=== PATIENT | male | born 1945 ===

== ENCOUNTER 2019-08-09 07:00 | Day surgery (SDC) | payer OTHER | END 2019-08-09 12:55 | disposition home or self-care (01) | LOC: AMB-ENDOS 07:00 | DX: K63.5 Polyp of colon (principal); K57.30 Diverticulosis of large intestine without perforation or abscess without bleeding; K64.1 Second degree hemorrhoids; K64.8 Other hemorrhoids ==

== ENCOUNTER 2024-07-04 14:38 | Inpatient (IN) | payer OTHER ==
[~2024-07-04] VITALS: Ht 162.6 cm; Wt 77.1 kg
[~2024-07-04 14:38] MED LIST: ASPIR 8181 MG PO; BISOPROLOL FUMA10 MG PO; ROSUVASTATIN CA20 MG PO
--- NOTE | 2024-07-04 14:48 | NUR ---
SE RECIBE PTE ALERTA Y ORIENTADO X3 EN AMBULANCIA. PTE VIENE DE TRANSFER DE MENONITA DE CAGUAS POR ABSCESO RECTAL. PTE DE DR GARCIA Y DR LEACH. SE IBSERVA HL CON ANGIO #20 EN [place]RAZO ZENON. SE MIDE SV Y SE UBICA
[2024-07-04] MEDS ORDERED: 0.9 % SODIUM CHLORIDE 500 ML IV ONE (16:00)
[2024-07-04 16:31] LABS: HEMATOCRIT 35.9 % (39.0-48.0); HEMOGLOBIN 12.1 g/dL (13-16.00); MEAN CELL VOLUME 78.9 fL (80.0-100.00); MEAN CORPUSCULAR HEMOGLOBIN 26.6 pg (27.00-32.0); MEAN CORPUSCULAR HGB CONC 33.7 g/dl (32.0-36.0); PLATELET COUNT 267 K/uL (150-450); RED BLOOD COUNT 4.55 M/uL (4.00-6.00); RED CELL DISTRIBUTION WIDTH 14.9 % (11.5-14.5)
--- NOTE | 2024-07-04 16:33 | NUR ---
SE ORIENTA FAMILIAR SOBRE TX MEDICO EL CUAL REFIERE ENTENDER.SE LE EXTRAEN MUESTRAS BAJO MEDIDAS ASEPTICAS,PTE CANALIZADO DESDE EL [facility].PATENTE Y SALENA DE EDEMA CON FLUIDOS DE MANTENIMIENTO.
[2024-07-04 16:43] LABS: ERYTHROCYTE SEDIMENTATION RATE > 130 mm/hr
[2024-07-04 16:56] LABS: URINE APPEARANCE Clear; URINE BACTERIA 12.5 uL (0.0-1933); URINE BILIRRUBIN Negative (NEGATIVE); URINE BLOOD Moderate; URINE COLOR Yellow; URINE EPITHELIAL CELLS 6.3 uL (0.0-38.8); URINE KETONE Trace (NEGATIVE); URINE LEUKOCYTE Negative; URINE NITRATE Negative; URINE PROTEIN 30 (NEGATIVE); URINE RBC 214.6 uL (0.0-20.8); URINE WBC 13.7 uL (0.0-23.2)
[2024-07-04 16:58] LABS: INR 1.11; PARTIAL THROMBOPLASTIN TIME 28.5 SECONDS (22.0-34.0)
[2024-07-04 17:05] LABS: URINE GLUCOSE 100 MG/DL (NEGATIVE)
[2024-07-04 17:05] LABS: ALBUMIN 2.7 gm/dL (3.4-5.0); BILIRUBIN TOTAL 0.5 mg/dL (0.3-1.2); BILIRUBIN,CONJUGATED 0.19 mg/dL (0.0-0.2); BILIRUBIN,UNCONJUGATED 0.31 mg/dL (0.0-0.6); CREATININE SERUM 0.71 mg/dL (0.70-1.30); GFR 107.02; GLOBULINA 4.9 G/DL (2.4-3.5); POTASSIUM 3.31 mEq/L (3.5-5.1); TOTAL PROTEIN 7.6 gm/dL (6.4-8.2)
[2024-07-04] MEDS ORDERED: 0.9 % SODIUM CHLORIDE 1,000 ML IV SCH (17:45)
[2024-07-04] MEDS ORDERED: ORPHENADRINE CITRATE 30 MG/ML AMPUL IM ONE (18:00)
[2024-07-04] MEDS ORDERED: POTASSIUM BICARBONATE/CIT AC 25 MEQ TABLET.EFF PO ONE (18:00)
[2024-07-04] MEDS ORDERED: PIPERACILLIN/TAZOBACTAM SODIUM 3.375 GM in DEXTROSE 5 % IN WATER 100 ML IV SCH (18:00)
[2024-07-04] MEDS ORDERED: ACETAMINOPHEN 500 MG GEL..CAP PO PRN (18:00)
[2024-07-04] MEDS ORDERED: KETOROLAC TROMETHAMINE 15 MG VIAL IU ONE (18:00)
[2024-07-04] MEDS ORDERED: MEPERIDINE HCL/PF 25 MG/ML VIAL IM PRN (18:00)
[2024-07-04] MEDS ORDERED: ORPHENADRINE CITRATE 30 MG/ML AMPUL IM SCH (18:33)
[2024-07-04] MEDS ORDERED: POTASSIUM CHLORIDE 20MEQ/100ML H2O PB IV ONE (18:45)
[2024-07-04 18:57] VITALS: BP 178/74; BP 178/84; O2SAT 95
[2024-07-05 04:00] VITALS: BP 176/72; O2SAT 94
[2024-07-05 08:02] VITALS: BP 175/61; O2SAT 98
[2024-07-05] MEDS ORDERED: ENALAPRILAT DIHYDRATE 1.25 MG/ML VIAL IV PRN (08:15)
[2024-07-05] MEDS ORDERED: FAMOTIDINE/PF 20 MG in 0.9 % SODIUM CHLORIDE 8 ML IV PUSH SCH (09:00)
[2024-07-05] MEDS ORDERED: NIFEDIPINE 30 MG TAB.SA.OSM PO SCH (09:00)
[2024-07-05] MEDS ORDERED: LOSARTAN POTASSIUM 25 MG TABLET PO SCH (09:00)
[2024-07-05] MEDS ORDERED: TAMSULOSIN HCL 0.4 MG CAP PO SCH ×2 (09:00→21:00)
[2024-07-05] MEDS ORDERED: ATORVASTATIN CALCIUM 40 MG TABLET PO SCH (09:00)
[2024-07-05 11:27] LABS: HEMATOCRIT 32.1 % (39.0-48.0); HEMOGLOBIN 10.9 g/dL (13-16.00); MEAN CELL VOLUME 79.3 fL (80.0-100.00); MEAN CORPUSCULAR HEMOGLOBIN 26.8 pg (27.00-32.0); MEAN CORPUSCULAR HGB CONC 33.8 g/dl (32.0-36.0); PLATELET COUNT 249 K/uL (150-450); RED BLOOD COUNT 4.05 M/uL (4.00-6.00); RED CELL DISTRIBUTION WIDTH 14.8 % (11.5-14.5)
[2024-07-05 12:14] LABS: ALBUMIN 2.7 gm/dL (3.4-5.0); BILIRUBIN TOTAL 0.62 mg/dL (0.3-1.2); CALCIUM 8.7 mg/dL (8.5-10.1); CREATININE SERUM 0.66 mg/dL (0.70-1.30); GFR 116.43; GLOBULINA 3.8 G/DL (2.4-3.5); PHOSPHOROUS 2.6 mg/dL (2.5-4.9); POTASSIUM 3.6 mEq/L (3.5-5.1); TOTAL PROTEIN 6.5 gm/dL (6.4-8.2)
[2024-07-05 12:32] LABS: MYCOPLASMA PNEUMONIAE IGM NON REACTIVE (NO REACTIVE)
[2024-07-05 15:17] LABS: ASO NEGATIVE DILS (NEGATIVE)
[2024-07-05 17:38] VITALS: BP 125/76; O2SAT 96
[2024-07-05] MEDS ORDERED: fentaNYL CITRATE 50 MCG/ML AMPUL IV PUSH ONE (17:45)
[2024-07-05] MEDS ORDERED: MIDAZOLAM HCL 2 MG/2 ML VIAL IV PUSH ONE (17:45)
[2024-07-06 00:50] VITALS: BP 136/64; O2SAT 90; O2SAT 94
[2024-07-06 06:19] LABS: HEMATOCRIT 32.4 % (39.0-48.0); HEMOGLOBIN 11.2 g/dL (13-16.00); MEAN CELL VOLUME 78.8 fL (80.0-100.00); MEAN CORPUSCULAR HEMOGLOBIN 27.3 pg (27.00-32.0); MEAN CORPUSCULAR HGB CONC 34.6 g/dl (32.0-36.0); PLATELET COUNT 283 K/uL (150-450); RED BLOOD COUNT 4.11 M/uL (4.00-6.00); RED CELL DISTRIBUTION WIDTH 14.5 % (11.5-14.5)
[2024-07-06 07:00] LABS: ALBUMIN 2.7 gm/dL (3.4-5.0); BILIRUBIN TOTAL 0.58 mg/dL (0.3-1.2); CALCIUM 8.4 mg/dL (8.5-10.1); CREATININE SERUM 0.61 mg/dL (0.70-1.30); GFR 127.51; PHOSPHOROUS 3.2 mg/dL (2.5-4.9); TOTAL PROTEIN 6.7 gm/dL (6.4-8.2)
[2024-07-06 07:04] LABS: C-REACTIVE PROTEIN 12.4 MG/DL (0.00-0.29)
[2024-07-06 07:05] LABS: POTASSIUM 4.09 mEq/L (3.5-5.1)
[2024-07-06 08:57] VITALS: BP 166/70; O2SAT 96
[2024-07-06 09:12] LABS: PLATELET ESTIMATE NORMAL (NORMAL)
[2024-07-06 10:15] LABS: CORTISOL < 0.11 ug/dl
[2024-07-06] MEDS ORDERED: TUBERCULIN,PURIF.PROT.DERIV. 10 SKIN.TEST SKIN.TEST ID NR (12:00)
[2024-07-06 14:55] LABS: T4 TOTAL 9.23 UG/DL (4.5-12.1); TSH 2.28 uIU/mL (0.358-3.74)
[2024-07-06 16:00] VITALS: BP 148/72; O2SAT 94
[2024-07-07 00:28] VITALS: BP 161/75; O2SAT 93
[2024-07-07 08:47] VITALS: BP 136/63; O2SAT 97
[2024-07-07] MEDS ORDERED: COSYNTROPIN 0.25 MG VIAL IV ONE (10:00)
[2024-07-07 18:02] VITALS: BP 166/77; O2SAT 98
[2024-07-08 05:09] VITALS: BP 168/78; O2SAT 99
[2024-07-08 06:25] LABS: HEMOGLOBIN 10.5 g/dL (13-16.00); MEAN CELL VOLUME 79.6 fL (80.0-100.00); MEAN CORPUSCULAR HGB CONC 33.9 g/dl (32.0-36.0); PLATELET COUNT 332 K/uL (150-450); RED CELL DISTRIBUTION WIDTH 14.6 % (11.5-14.5)
[2024-07-08 08:20] VITALS: BP 173/79; O2SAT 96
[2024-07-08 08:20] LABS: CALCIUM 8.5 mg/dL (8.5-10.1); CREATININE SERUM 0.65 mg/dL (0.70-1.30); GFR 118.5; MAGNESIUM 1.9 mg/dL (1.8-2.4); PHOSPHOROUS 3.2 mg/dL (2.5-4.9); POTASSIUM 3.44 mEq/L (3.5-5.1)
[2024-07-08 08:21] LABS: C-REACTIVE PROTEIN 5.57 MG/DL (0.00-0.29)
[2024-07-08] MEDS ORDERED: ENOXAPARIN SODIUM 40 MG/0.4 ML SYRINGE SUBCUTANEO SCH (09:00)
[2024-07-08 09:30] LABS: ERYTHROCYTE SEDIMENTATION RATE 95 mm/hr
[2024-07-08 16:23] VITALS: BP 153/73
[2024-07-09 01:51] VITALS: BP 178/72; O2SAT 96
[2024-07-09 07:52] VITALS: BP 188/79; O2SAT 96
[2024-07-09] MEDS ORDERED: SODIUM CHLORIDE 0.45 % 1,000 ML IV SCH (12:15)
[2024-07-09 17:07] VITALS: BP 175/73
[2024-07-10] VITALS: BP 145/71; O2SAT 93
[2024-07-10 06:55] LABS: HEMATOCRIT 35.2 % (39.0-48.0); HEMOGLOBIN 11.7 g/dL (13-16.00); MEAN CELL VOLUME 80.2 fL (80.0-100.00); MEAN CORPUSCULAR HEMOGLOBIN 26.6 pg (27.00-32.0); MEAN CORPUSCULAR HGB CONC 33.2 g/dl (32.0-36.0); PLATELET COUNT 394 K/uL (150-450); RED BLOOD COUNT 4.39 M/uL (4.00-6.00); RED CELL DISTRIBUTION WIDTH 14.8 % (11.5-14.5)
[2024-07-10 07:26] LABS: ALBUMIN 2.9 gm/dL (3.4-5.0); BILIRUBIN TOTAL 0.44 mg/dL (0.3-1.2); CALCIUM 8.9 mg/dL (8.5-10.1); CREATININE SERUM 0.75 mg/dL (0.70-1.30); GFR 100.46; GLOBULINA 4.5 G/DL (2.4-3.5); POTASSIUM 3.92 mEq/L (3.5-5.1); TOTAL PROTEIN 7.4 gm/dL (6.4-8.2)
[2024-07-10 07:34] LABS: C-REACTIVE PROTEIN 3.07 MG/DL (0.00-0.29)
[2024-07-10 09:56] VITALS: BP 151/66; O2SAT 98
== END 2024-07-10 15:00 | disposition home or self-care (01) | DRG 375 ==
LOC: ER 14:38 → MEDI 18:43 → SEC-K 18:43 → MEDI 19:46
PROVIDERS: Internal Medicine Geriatric Medicine; Internal Medicine Infectious Disease; Nurse Practitioner Family; Specialist; ADMIT Colon & Rectal Surgery; ATTEND Colon & Rectal Surgery
PROC: 0D9P3ZZ Drainage of Rectum, Percutaneous Approach (ICD-10-PCS; principal; 2024-07-05)
PROC: 4A12X4Z Monitoring of Cardiac Electrical Activity, External Approach (ICD-10-PCS; 2024-07-06)
PROC: B345ZZZ Ultrasonography of Bilateral Common Carotid Arteries (ICD-10-PCS; 2024-07-07)
PROC: B348ZZZ Ultrasonography of Bilateral Internal Carotid Arteries (ICD-10-PCS; 2024-07-07)
DX: C20 Malignant neoplasm of rectum (principal); E27.40 Unspecified adrenocortical insufficiency; K61.1 Rectal abscess; E87.1 Hypo-osmolality and hyponatremia; I11.9 Hypertensive heart disease without heart failure; I35.1 Nonrheumatic aortic (valve) insufficiency; E87.6 Hypokalemia; E78.00 Pure hypercholesterolemia, unspecified; D64.9 Anemia, unspecified; B95.2 Enterococcus as the cause of diseases classified elsewhere; B96.89 Other specified bacterial agents as the cause of diseases classified elsewhere

== ENCOUNTER 2024-07-10 12:00 | Inpatient (IN) | payer OTHER ==
[~2024-07-10] VITALS: Ht 165.1 cm; Wt 69.4 kg
[2024-07-13] MEDS ORDERED: LOSARTAN POTASS25 MG (15:09)
[2024-07-13] MEDS ORDERED: JARDIANCE10 MG (15:09)
[2024-07-13] MEDS ORDERED: VITAMINA D3 (15:10)
[2024-07-13] MEDS ORDERED: NIFEDIPINE ER30 MG (15:10)
[2024-07-13 15:11] VITALS: BP 178/78
[2024-07-19] MEDS ORDERED: POVIDONE-IODINE 118 ML BOTT TOP ONE (14:45)
[2024-07-19] MEDS ORDERED: BUPIVACAINE HCL 30 ML VIAL IJ ONE (14:45)
[2024-07-19] MEDS ORDERED: DIBUCAINE 30 GM TUBE RECTAL ONE (14:45)
[2024-07-19] MEDS ORDERED: CEFTRIAXONE SODIUM 2,000 MG VIAL IV ONE (14:45)
[2024-07-19] MEDS ORDERED: METRONIDAZOLE/SODIUM CHLORIDE 500 MG/100 ML PIGGYBACK IV ONE (14:45)
[2024-07-19] MEDS ORDERED: LIDOCAINE HCL 1%/EPINEPHRINE 20ML VIAL IJ ONE (14:45)
[2024-07-19] MEDS ORDERED: HEMOSTATIC MATRIX 1 KIT KIT TOP ONE (14:45)
[2024-07-19] MEDS ORDERED: MORPHINE SULFATE 4 MG/ML CARTRIDGE IV PRN (15:00)
[2024-07-19] MEDS ORDERED: RINGERS SOLUTION,LACTATED 1,000 ML IV SCH (15:00)
[2024-07-19] MEDS ORDERED: DEXTROSE 50 % IN WATER 0.5 G/ML DISP.SYRIN IV PRN (15:00)
[2024-07-19] MEDS ORDERED: ONDANSETRON HCL 2 MG/ML VIAL IV PRN (15:00)
[2024-07-19] MEDS ORDERED: SUGAMMADEX SODIUM 200 MG/2 ML VIAL IV ONE (15:00)
[2024-07-19] MEDS ORDERED: OxyCODONE HCL 5 MG TABLET (ROXICODONE) PO PRN (15:00)
[2024-07-19] MEDS ORDERED: ATORVASTATIN CA40 MG (15:11)
[2024-07-19] MEDS ORDERED: VITAMIN D3250 MCG (15:11)
[2024-07-19] MEDS ORDERED: TAMSULOSIN HCL0.4 MG (15:11)
[2024-07-19] MEDS ORDERED: HYDROXYZINE PAM50 MG (15:11)
[2024-07-19] MEDS ORDERED: MORPHINE SULFATE 4 MG/ML VIAL IV ONE ×2 (15:15→15:30)
[2024-07-19] MEDS ORDERED: GABAPENTIN 300 MG CAPSULE PO SCH (17:00)
[2024-07-19] MEDS ORDERED: HYOSCYAMINE SULFATE 0.125 MG TAB.SUBL SL SCH (17:00)
[2024-07-19] MEDS ORDERED: POLYETHYLENE GLYCOL 3350 17 GM BLIST.PACK PO SCH (17:00)
[2024-07-19] MEDS ORDERED: METOCLOPRAMIDE HCL 5 MG/ML VIAL IV SCH (17:00)
[2024-07-19] MEDS ORDERED: SIMETHICONE 125 MG CAPSULE PO SCH (17:00)
[2024-07-19 19:01] LABS: HEMATOCRIT 38.1 % (39.0-48.0); HEMOGLOBIN 12.8 g/dL (13-16.00); MEAN CELL VOLUME 80.6 fL (80.0-100.00); MEAN CORPUSCULAR HGB CONC 33.5 g/dl (32.0-36.0); PLATELET COUNT 331 K/uL (150-450); RED BLOOD COUNT 4.73 M/uL (4.00-6.00); RED CELL DISTRIBUTION WIDTH 15.8 % (11.5-14.5)
[2024-07-19 19:18] VITALS: BP 189/80; O2SAT 95
[2024-07-19] MEDS ORDERED: ACETAMINOPHEN 500 MG GEL..CAP PO SCH (20:00)
[2024-07-19] MEDS ORDERED: FAMOTIDINE/PF 20 MG/2 ML VIAL IV PUSH SCH (21:00)
[2024-07-20 01:47] VITALS: BP 168/74; O2SAT 97
[2024-07-20 06:17] LABS: HEMATOCRIT 34.3 % (39.0-48.0); HEMOGLOBIN 11.4 g/dL (13-16.00); MEAN CELL VOLUME 81.2 fL (80.0-100.00); MEAN CORPUSCULAR HEMOGLOBIN 26.9 pg (27.00-32.0); MEAN CORPUSCULAR HGB CONC 33.1 g/dl (32.0-36.0); PLATELET COUNT 330 K/uL (150-450); RED BLOOD COUNT 4.23 M/uL (4.00-6.00)
[2024-07-20 07:02] LABS: ALBUMIN 3.1 gm/dL (3.4-5.0); CALCIUM 8.7 mg/dL (8.5-10.1); CREATININE SERUM 0.72 mg/dL (0.70-1.30); GFR 105.31; PHOSPHOROUS 3.3 mg/dL (2.5-4.9)
[2024-07-20 07:03] LABS: POTASSIUM 5.21 mEq/L (3.5-5.1)
[2024-07-20 08:43] VITALS: BP 124/64; O2SAT 96
[2024-07-20] MEDS ORDERED: LACTOBACILLUS ACIDOPHILUS 1 CAP CAP PO SCH (09:00)
[2024-07-20] MEDS ORDERED: LACTULOSE 20 G/30 ML BLIST.PACK PO SCH (09:00)
[2024-07-20 16:01] VITALS: BP 143/67; O2SAT 98
[2024-07-20] MEDS ORDERED: ENOXAPARIN SODIUM 40 MG/0.4 ML SYRINGE SUBCUTANEO SCH (17:00)
[2024-07-21] MEDS ORDERED: ENOXAPARIN SODIUM 40 MG/0.4 ML SYRINGE SUBCUTANEO SCH (09:00)
== END 2024-07-20 16:31 | disposition home or self-care (01) | DRG 394 ==
LOC: O/R 07-19 11:56 → SURG 07-19 12:00
PROVIDERS: ADMIT Colon & Rectal Surgery; ATTEND Colon & Rectal Surgery
PROC: 0DBP8ZZ Excision of Rectum, Via Natural or Artificial Opening Endoscopic (ICD-10-PCS; principal; 2024-07-19 12:30)
DX: D12.8 Benign neoplasm of rectum (principal); C20 Malignant neoplasm of rectum; K61.0 Anal abscess; K61.1 Rectal abscess; E27.40 Unspecified adrenocortical insufficiency; E87.1 Hypo-osmolality and hyponatremia; D12.9 Benign neoplasm of anus and anal canal; I11.9 Hypertensive heart disease without heart failure; E78.00 Pure hypercholesterolemia, unspecified; D50.0 Iron deficiency anemia secondary to blood loss (chronic); I44.0 Atrioventricular block, first degree; E87.6 Hypokalemia; R01.1 Cardiac murmur, unspecified; R00.0 Tachycardia, unspecified; R59.0 Localized enlarged lymph nodes; M54.2 Cervicalgia; M62.838 Other muscle spasm; I35.1 Nonrheumatic aortic (valve) insufficiency; Z86.0100 Personal history of colon polyps, unspecified; Z20.822 Contact with and (suspected) exposure to COVID-19
CPT/HCPCS: 0184T; 45123

== ENCOUNTER 2025-08-23 12:30 | Inpatient (IN) | payer OTHER ==
[~2025-08-23] VITALS: Ht 167.6 cm; Wt 70.3 kg
[~2025-08-23 12:30] MED LIST changes: +ATORVASTATIN CA40 MG; +HYDROXYZINE PAM50 MG; +JARDIANCE10 MG; +LOSARTAN POTASS25 MG; +NIFEDIPINE ER30 MG; +TAMSULOSIN HCL0.4 MG; +VITAMIN D3250 MCG; +VITAMINA D3
[2025-08-28] MEDS ORDERED: METRONIDAZOLE/SODIUM CHLORIDE 500 MG/100 ML PIGGYBACK IV ONE (11:12)
[2025-08-28] MEDS ORDERED: CEFTRIAXONE SODIUM 1,000 MG VIAL ONE (11:13)
[2025-08-28] MEDS ORDERED: BUPIVACAINE HCL/MPF 0.5% 30ML VIAL ONE (13:00)
[2025-08-28] MEDS ORDERED: POVIDONE-IODINE 118 ML BOTT TOP ONE (13:00)
[2025-08-28] MEDS ORDERED: SUGAMMADEX SODIUM 200 MG/2 ML VIAL IV ONE (16:47)
[2025-08-28] MEDS ORDERED: INSULIN LISPRO 1,000 UNIT/10 ML UNITS SUBCUTANEO PRN (17:30)
[2025-08-28] MEDS ORDERED: ENALAPRILAT DIHYDRATE 1.25 MG/ML VIAL IV PRN (17:30)
[2025-08-28] MEDS ORDERED: DEXTROSE 50 % IN WATER 0.5 G/ML DISP.SYRIN IV PRN (17:30)
[2025-08-28] MEDS ORDERED: DIPHENHYDRAMINE HCL 50 MG/ML VIAL 1ML IV ONE (18:15)
[2025-08-28] MEDS ORDERED: OxyCODONE HCL 5 MG TABLET (ROXICODONE) PO PRN (20:00)
[2025-08-28] MEDS ORDERED: ONDANSETRON HCL 2 MG/ML VIAL IV PRN (20:00)
[2025-08-28] MEDS ORDERED: MORPHINE SULFATE 4 MG/ML VIAL IV PRN (20:00)
[2025-08-28] MEDS ORDERED: ACETAMINOPHEN 500 MG GEL..CAP PO SCH (20:00)
[2025-08-28] MEDS ORDERED: RINGERS SOLUTION,LACTATED 1,000 ML IV SCH (20:00)
[2025-08-28] MEDS ORDERED: FAMOTIDINE/PF 20 MG/2 ML VIAL ONE (20:08)
[2025-08-28 20:33] LABS: BASO % 0.1 % (0.1-1.2); EOS # 0.01 (0.04-0.54); EOS % 0.1 % (0.7-7.0); LYMPH # 0.37 (1.18-3.74); LYMPH % 4.4 % (19.3-53.1); MEAN PLATELET VOLUME 9.10 fl (9.4-12.4); MONO # 0.45 (0.24-0.82); MONO % 5.3 % (4.7-12.5); NEUT # 7.54 (1.56-6.13); NEUT % 89.6 % (34.0-71.1); RED CELL DISTRIBUTION WIDTH 15.3 % (11.6-14.4)
[2025-08-28 20:53] VITALS: BP 168/70; O2SAT 94
[2025-08-28] MEDS ORDERED: FAMOTIDINE/PF 20 MG/2 ML VIAL IV PUSH SCH (21:00)
[2025-08-28] MEDS ORDERED: SIMETHICONE 125 MG CAPSULE PO SCH (21:00)
[2025-08-29] VITALS: BP 171/81; O2SAT 96
[2025-08-29] MEDS ORDERED: METOCLOPRAMIDE HCL 5 MG/ML VIAL IV SCH (01:00)
[2025-08-29] MEDS ORDERED: GABAPENTIN 300 MG CAPSULE PO SCH (01:00)
[2025-08-29] MEDS ORDERED: CELECOXIB 200 MG CAPSULE PO SCH (05:00)
[2025-08-29 06:19] LABS: BASO % 0.1 % (0.1-1.2); EOS # 0.00 (0.04-0.54); EOS % 0.0 % (0.7-7.0); LYMPH # 0.62 (1.18-3.74); LYMPH % 7.5 % (19.3-53.1); MEAN PLATELET VOLUME 9.70 fl (9.4-12.4); MONO # 0.51 (0.24-0.82); MONO % 6.2 % (4.7-12.5); NEUT # 7.08 (1.56-6.13); NEUT % 85.8 % (34.0-71.1); RED CELL DISTRIBUTION WIDTH 15.4 % (11.6-14.4)
[2025-08-29 07:09] LABS: BUN CREA RATIO 14.0 (7.0-25.0); CREATININE SERUM 0.7 mg/dL (0.70-1.30); GFR 108.51; GLUCOSE FASTING 105.0 mg/dL (65-100); OSMOLALITY SERUM 260.0 MOSM/KG (275-295)
[2025-08-29 08:00] VITALS: BP 159/72; O2SAT 95
[2025-08-29] MEDS ORDERED: LACTULOSE 20 G/30 ML BLIST.PACK PO SCH (09:00)
[2025-08-29] MEDS ORDERED: LACTOBACILLUS ACIDOPHILUS 1 CAP CAP PO SCH (09:00)
[2025-08-29] MEDS ORDERED: HYOSCYAMINE SULFATE 0.125 MG TAB.SUBL SL SCH (09:00)
[2025-08-29] MEDS ORDERED: LOSARTAN POTASSIUM 25 MG TABLET PO SCH (09:00)
[2025-08-29] MEDS ORDERED: Cyanocobalamin/Mecobalamin 1 TAB.SL SL NR (11:15)
[2025-08-29] MEDS ORDERED: SOD FERRIC GLUC COMPLX/SUCROSE 62.5 MG in 0.9 % SODIUM CHLORIDE 50 ML IV NR (11:15)
[2025-08-29] MEDS ORDERED: MAGNESIUM SULFATE IN WATER 50 ML IV NR (11:15)
[2025-08-29 15:47] VITALS: BP 158/7; O2SAT 98
[2025-08-29] MEDS ORDERED: ENOXAPARIN SODIUM 40 MG/0.4 ML SYRINGE SUBCUTANEO SCH (17:00)
[2025-08-29 23:34] VITALS: BP 168/76; O2SAT 95
[2025-08-30 06:15] LABS: BASO % 0.1 % (0.1-1.2); EOS # 0.06 (0.04-0.54); EOS % 0.9 % (0.7-7.0); LYMPH # 0.88 (1.18-3.74); LYMPH % 12.9 % (19.3-53.1); MEAN PLATELET VOLUME 9.70 fl (9.4-12.4); MONO # 0.59 (0.24-0.82); MONO % 8.7 % (4.7-12.5); NEUT # 5.27 (1.56-6.13); NEUT % 77.3 % (34.0-71.1); RED CELL DISTRIBUTION WIDTH 15.6 % (11.6-14.4)
[2025-08-30 07:24] LABS: BUN CREA RATIO 12.0 (7.0-25.0); CREATININE SERUM 0.51 mg/dL (0.70-1.30); GFR 156.37; GLUCOSE FASTING 106.0 mg/dL (65-100); OSMOLALITY SERUM 264.0 MOSM/KG (275-295)
[2025-08-30 08:00] VITALS: BP 160/73; O2SAT 96
[2025-08-30] MEDS ORDERED: SODIUM CHLORIDE 0.45 % 1,000 ML IV SCH (08:45)
[2025-08-30] MEDS ORDERED: Cyanocobalamin/Mecobalamin 1 TAB.SL SL SCH (09:00)
[2025-08-30] MEDS ORDERED: SOD FERRIC GLUC COMPLX/SUCROSE 62.5 MG in 0.9 % SODIUM CHLORIDE 50 ML IV SCH (09:00)
[2025-08-30] MEDS ORDERED: ENOXAPARIN SODIUM 40 MG/0.4 ML SYRINGE SUBCUTANEO SCH (09:00)
[2025-08-30] MEDS ORDERED: POTASSIUM PHOS,M-BASIC-D-BASIC 3 MM/ML VIAL IV ONE (11:00)
[2025-08-30 16:00] VITALS: BP 143/70; O2SAT 99
[2025-08-30] MEDS ORDERED: DILTIAZEM HCL 25 MG/5 ML VIAL IV NR (19:15)
[2025-08-30] MEDS ORDERED: DILTIAZEM HCL 125 MG in 0.9 % SODIUM CHLORIDE 100 ML IV SCH (19:15)
[2025-08-30] MEDS ORDERED: METOPROLOL TARTRATE 25 MG TABLET PO SCH (21:00)
[2025-08-31] VITALS: BP 145/71; O2SAT 96
[2025-08-31 04:40] LABS: BASO % 0.3 % (0.1-1.2); EOS # 0.16 (0.04-0.54); EOS % 2.8 % (0.7-7.0); LYMPH # 1.23 (1.18-3.74); LYMPH % 21.3 % (19.3-53.1); MEAN PLATELET VOLUME 9.00 fl (9.4-12.4); MONO # 0.71 (0.24-0.82); MONO % 12.3 % (4.7-12.5); NEUT # 3.64 (1.56-6.13); NEUT % 63.1 % (34.0-71.1); RED CELL DISTRIBUTION WIDTH 15.4 % (11.6-14.4)
[2025-08-31 05:33] LABS: BUN CREA RATIO 17.0 (7.0-25.0); CREATININE SERUM 0.64 mg/dL (0.70-1.30); GFR 120.33; GLUCOSE FASTING 89.0 mg/dL (65-100); OSMOLALITY SERUM 267.0 MOSM/KG (275-295)
[2025-08-31 08:00] VITALS: BP 175/66; O2SAT 98
[2025-08-31 15:56] VITALS: BP 192/71; O2SAT 98
[2025-08-31 21:08] VITALS: O2SAT 96
[2025-09-01] VITALS (16 sets, daily range): BP systolic 153–205; BP diastolic 55–100; O2SAT 95–100
[2025-09-01] MEDS ORDERED: LOSARTAN POTASSIUM 50 MG TABLET PO SCH (09:00)
[2025-09-01 09:25] LABS: BASO % 0.3 % (0.1-1.2); EOS # 0.11 (0.04-0.54); EOS % 1.7 % (0.7-7.0); LYMPH # 0.95 (1.18-3.74); LYMPH % 14.5 % (19.3-53.1); MEAN PLATELET VOLUME 10.00 fl (9.4-12.4); MONO # 0.60 (0.24-0.82); MONO % 9.1 % (4.7-12.5); NEUT # 4.87 (1.56-6.13); NEUT % 74.1 % (34.0-71.1); RED CELL DISTRIBUTION WIDTH 15.7 % (11.6-14.4)
[2025-09-01] MEDS ORDERED: NITROGLYCERIN IN 5 % DEXTROSE 250 ML IV SCH (21:30)
[2025-09-01] MEDS ORDERED: NITROGLYCERIN IN 5 % DEXTROSE 50 MG/250 ML BOTTLE IV ONE (21:31)
[2025-09-02] VITALS (11 sets, daily range): BP systolic 138–195; BP diastolic 53–100; O2SAT 97–99
[2025-09-02] MEDS ORDERED: NITROGLYCERIN IN 5 % DEXTROSE 250 ML IV SCH ×2 (08:30→21:30)
[2025-09-02] MEDS ORDERED: NITROGLYCERIN IN 5 % DEXTROSE 50 MG/250 ML BOTTLE IV ONE (21:36)
[2025-09-03] VITALS (7 sets, daily range): BP systolic 138–167; BP diastolic 57–62; O2SAT 95–100
[2025-09-03] MEDS ORDERED: JARDIANCE10 MG PO (14:31)
[2025-09-03] MEDS ORDERED: HYOSCYAMINE0.125 M1 SL (14:31)
[2025-09-03] MEDS ORDERED: ATORVASTATIN CA40 MG PO (14:31)
[2025-09-03] MEDS ORDERED: LOPRESSOR25 MG PO (14:31)
[2025-09-03] MEDS ORDERED: ELIQUIS5 MG PO (14:31)
[2025-09-03] MEDS ORDERED: COZAAR50 MG PO (14:31)
[2025-09-03] MEDS ORDERED: ABANEU-SL TABL1 EACH SL (14:31)
[2025-09-03] MEDS ORDERED: FUSION PLUS CA1 EACH PO (14:31)
[2025-09-03] MEDS ORDERED: HYDRALAZINE HCL25 MG PO (14:31)
== END 2025-09-03 15:37 | disposition home or self-care (01) | DRG 330 ==
LOC: O/R 08-28 10:00 → SURH 08-28 12:30 → SURG 08-28 17:47 → SURH 08-28 18:45 → SURG 09-03 15:37
PROVIDERS: Internal Medicine Geriatric Medicine; ADMIT Colon & Rectal Surgery; ATTEND Colon & Rectal Surgery
PROC: 0DTP4ZZ Resection of Rectum, Percutaneous Endoscopic Approach (ICD-10-PCS; 2025-08-28)
PROC: 0DBQ4ZZ Excision of Anus, Percutaneous Endoscopic Approach (ICD-10-PCS; 2025-08-28)
PROC: 07BC4ZZ Excision of Pelvis Lymphatic, Percutaneous Endoscopic Approach (ICD-10-PCS; 2025-08-28)
PROC: 07BB3ZX Excision of Mesenteric Lymphatic, Percutaneous Approach, Diagnostic (ICD-10-PCS; 2025-08-28)
PROC: 0D1N4Z4 Bypass Sigmoid Colon to Cutaneous, Percutaneous Endoscopic Approach (ICD-10-PCS; 2025-08-28)
PROC: 0DTN4ZG Resection of Sigmoid Colon, Percutaneous Endoscopic Approach, Hand-Assisted (ICD-10-PCS; principal; 2025-08-28 18:45)
PROC: B246ZZZ Ultrasonography of Right and Left Heart (ICD-10-PCS; 2025-08-31)
PROC: 4A12X4Z Monitoring of Cardiac Electrical Activity, External Approach (ICD-10-PCS; 2025-08-31)
PROC: B020ZZZ Computerized Tomography (CT Scan) of Brain (ICD-10-PCS; 2025-09-01)
DX: C20 Malignant neoplasm of rectum (principal); E87.1 Hypo-osmolality and hyponatremia; I48.20 Chronic atrial fibrillation, unspecified; I97.191 Other postprocedural cardiac functional disturbances following other surgery; D12.8 Benign neoplasm of rectum; D12.9 Benign neoplasm of anus and anal canal; R59.0 Localized enlarged lymph nodes; K57.30 Diverticulosis of large intestine without perforation or abscess without bleeding; D64.89 Other specified anemias; R41.0 Disorientation, unspecified; I10 Essential (primary) hypertension; Z43.3 Encounter for attention to colostomy; Z86.0100 Personal history of colon polyps, unspecified; Z92.21 Personal history of antineoplastic chemotherapy; Z79.01 Long term (current) use of anticoagulants; Y83.8 Other surgical procedures as the cause of abnormal reaction of the patient, or of later complication, without mention of misadventure at the time of the procedure